=== PATIENT | male | born 1955 | race Asian ===

== ENCOUNTER 2017-09-12 13:34 | Emergency (ER) | payer SELFPAY ==
[~2017-09-12] VITALS: Ht 162.6 cm; Wt 58.3 kg
[2017-09-12 13:37] VITALS: BP 132/83
[2017-09-12] MEDS ORDERED: LIDOCAINE 1%, 10ML ONE (13:47)
[2017-09-12] MEDS ORDERED: DIPH,PERTUSS(ACELL),TET VAC/PF 0.5 ML IM-VACC ONE ×2 (13:47→14:00)
[2017-09-12] MEDS ORDERED: LIDOCAINE 1%, 20ML SQ ONE (14:00)
[2017-09-12] MEDS ORDERED: BACITRACIN ZINC OINT 500U/GM, 0.9 GM ONE (16:01)
== END 2017-09-12 16:25 | disposition home or self-care (01) ==
LOC: ED 16:18
DX: S61.210A Laceration without foreign body of right index finger without damage to nail, initial encounter (principal); S61.212A Laceration without foreign body of right middle finger without damage to nail, initial encounter; W27.8XXA Contact with other nonpowered hand tool, initial encounter; Y93.89 Activity, other specified; Y99.8 Other external cause status; Y92.69 Other specified industrial and construction area as the place of occurrence of the external cause
CPT/HCPCS: 12002; 90471; 90715